=== PATIENT | male | born 2000 | race Hispanic/Latino ===

== ENCOUNTER 2022-11-26 10:51 | Emergency (ER) | payer OTHER ==
[2022-11-26] MEDS ORDERED: Ketorolac Tromethamine 30 MG/ML VIAL ONE (11:27)
[2022-11-26] MEDS ORDERED: Fentanyl 100 MCG/2 ML VIAL ONE (11:27)
[2022-11-26] MEDS ORDERED: LORazepam 2 MG/ML SYR.(CARPUJECT) ONE (13:18)
== END 2022-11-26 14:00 | disposition home or self-care (01) ==
LOC: ERS 10:51
DX: M54.50 Low back pain, unspecified (principal)
CPT/HCPCS: 72100; 96374; 96375; J1885; J2060; J3010